=== PATIENT | female | born 1985 | race Caucasian/White ===

== ENCOUNTER 2019-05-23 06:24 | Emergency (ER) | payer MEDICAID, OTHER ==
[~2019-05-23] VITALS: Ht 157.4 cm; Wt 95.5 kg
[2019-05-23] MEDS ORDERED: LACTATED RINGERS 1,000 ML IV ONE (07:33)
--- NOTE | 2019-05-23 07:36 | ED Abdominal Pain ---
General Chief Complaint: Abdominal/GI Problems Stated Complaint: ABD PAIN Source of Information: Patient History of Present Illness Date Seen by Provider: May 23, 2019 Time Seen by Provider: 07:25 Initial Comments PT ARRIVES VIA POV FROM HOME C/O RUQ PAIN RADIATING TO RIGHT FLANK PAIN BEGAN SOMETIME THIS MORNING--PT UNABLE TO STATE WHAT TIME/HOW LONG IT HAS BEEN GOING ON NOTHING WORSENS OR IMPROVES PAIN C/O NAUSEA, NO VOMITING HAD NORMAL BM YESTERDAY NO URINARY SYMPTOMS NO FEVER, BUT STATES SHE HAS "HOT FLASHES" SOMETIMES HAS HAD THIS SAME PAIN SEVERAL TIMES BEFORE, BUT HAS NEVER SOUGHT CARE THIS IS NO DIFFERENT THAN PREVIOUS EPISODES HAS NOT TAKEN ANYTHING FOR PAIN LMP--28 DAYS AGO. NORMAL. NO CONTROL PT DRINKS HEAVILY EVERY DAY--AT LEAST 2 PINTS OF HARD LIQUOR EVERY DAY PT IS IV METH USER PT SMOKES OVER 1 PPD SINCE AGE 15 PCP: NONE--STATES SHE "DOESN'T GO TO DOCTORS" Allergies and Home Medications Allergies Coded Allergies: No Known Drug Allergies (Unverified , 05/23/19) Home Medications Ondansetron 4 Mg Tab.rapdis, 4 MG PO Q4H Prescribed by: NIDIA ROSS on 05/23/19931 Tramadol HCl 50 Mg Tablet, 50 MG PO Q4H PRN for PAIN-MODERATE Prescribed by: NIDIA ROSS on 05/23/19 0932 Patient Home Medication List Home Medication List Reviewed: Yes Review of Systems Review of Systems Constitutional: see HPI Respiratory: No Symptoms Reported Cardiovascular: No Symptoms Reported Gastrointestinal: See HPI, Abdominal Pain; Denies Diarrhea; Nausea; Denies Vomiting Genitourinary: No Symptoms Reported Musculoskeletal: see HPI, back pain Skin: no symptoms reported Psychiatric/Neurological: No Symptoms Reported Endocrine: No Symptoms Reported Hematologic/Lymphatic: No Symptoms Reported Past Fqnjyvn-[id number]-Wjuphh Hx Past Med/Social Hx: Reviewed and Corrections made Patient Social History Alcohol Use: Regular Use (DRINKS "A COUPLE OF PINTS A DAY" ) Recreational Drug Use: Yes (+IV METH USE, ALSO TESTED + FOR BENZO'S) Drug of Choice: + IV METH USE, ALSO TESTED + FOR BENZO'S Smoking Status: Current Everyday Smoker (> 1 PPD SINCE AGE 15) Type Used: Cigarettes (> 1 PPD SINCE AGE 15) Recent Foreign Travel: No Contact w/Someone Who Travel: No Past Medical History Surgeries: Yes (CYST REMOVED FROM LEFT FOOT) Orthopedic Respiratory: No Cardiac: No Neurological: No : No Reproductive Disorders: No Genitourinary: No Gastrointestinal: No Musculoskeletal: Yes (CYST REMOVED FROM LEFT FOOT) Endocrine: No HEENT: Yes (POOR DENTITION) Cancer: No Psychosocial: Yes (POLYSUBSTANCE ABUSE) Integumentary: No Blood Disorders: No Physical Exam Vital Signs Vital Signs - First Documented 05/23/19 07:20 Temp 36.4 Pulse 94 Resp 20 B/P (MAP) 142/103 (116) Pulse Ox 100 O2 Delivery Room Air Capillary Refill : Height/Weight/BMI Height: '" Weight: lbs. oz. kg; BMI Method: General Appearance: no apparent distress, obese, other (SITTING -STYLE, WALKS UPRIGHT AND MOVES QUICKLY WITHOUT DIFFICULTY. DOES NOT APPEAR TO BE IN ANY DISCOMFORT WHATSOEVER. REEKS OF CIGARETTES. CONSTANT MOVEMENTS OF BODY AND MOUTH. ) HEENT: other (POOR DENTITION--NO UPPER TEETH) Neck: normal inspection Respiratory: normal breath sounds, no respiratory distress, no accessory muscle use Cardiovascular: regular rate, rhythm, no murmur Gastrointestinal: normal bowel sounds, soft, tenderness (RUQ) Extremities: normal inspection Back: CVA tenderness (R) Neurologic/Psychiatric: manager home II-XII nml as tested, no motor/sensory deficits, alert, normal mood/affect, oriented x 3 Skin: normal color, warm/dry; No rash Progress/Results/Core Measures Results/Orders Lab Results Laboratory Tests Test 05/23/19 07:20 05/23/19 07:40 Range/Units Urine Color YELLOW Urine Clarity CLEAR Urine pH 5.5 5-9 Urine Specific [place] 1.025 H 1.016-1.022 Urine Protein NEGATIVE NEGATIVE Urine Glucose (UA) NEGATIVE NEGATIVE Urine Ketones NEGATIVE NEGATIVE Urine Nitrite NEGATIVE NEGATIVE Urine Bilirubin NEGATIVE NEGATIVE Urine Urobilinogen 0.2 < = 1.0 MG/DL Urine Leukocyte Esterase NEGATIVE NEGATIVE Urine RBC (Auto) NEGATIVE NEGATIVE Urine RBC NONE /HPF Urine WBC NONE /HPF Urine Squamous Epithelial Cells RARE /HPF Urine Crystals NONE /LPF Urine Bacteria NEGATIVE /HPF Urine Casts NONE /LPF Urine Mucus NEGATIVE /LPF Urine Culture Indicated NO Urine Opiates Screen NEGATIVE NEGATIVE Urine Oxycodone Screen NEGATIVE NEGATIVE Urine Methadone Screen NEGATIVE NEGATIVE Urine Propoxyphene Screen NEGATIVE NEGATIVE Urine Barbiturates Screen NEGATIVE NEGATIVE Ur Tricyclic Antidepressants Screen NEGATIVE NEGATIVE Urine Phencyclidine Screen NEGATIVE NEGATIVE Urine Amphetamines Screen POSITIVE H NEGATIVE Urine Methamphetamines Screen NEGATIVE NEGATIVE Urine Benzodiazepines Screen POSITIVE H NEGATIVE Urine Cocaine Screen NEGATIVE NEGATIVE Urine Cannabinoids Screen NEGATIVE NEGATIVE White Blood Count 12.4 H 4.3-11.0 10^3/uL Red Blood Count 5.46 4.35-5.85 10^6/uL Hemoglobin 15.5 11.5-16.0 G/DL Hematocrit 47 35-52 % Mean Corpuscular Volume 85 80-99 FL Mean Corpuscular Hemoglobin 28 25-34 PG Mean Corpuscular Hemoglobin Concent 33 32-36 G/DL Red Cell Distribution Width 13.3 10.0-14.5 % Platelet Count 307 130-400 10^3/uL Mean Platelet Volume 11.3 H 7.4-10.4 FL Neutrophils (%) (Auto) 69 42-75 % Lymphocytes (%) (Auto) 23 12-44 % Monocytes (%) (Auto) 4 0-12 % Eosinophils (%) (Auto) 3 0-10 % Basophils (%) (Auto) 0 0-10 % Neutrophils # (Auto) 8.5 H 1.8-7.8 X 10^3 Lymphocytes # (Auto) 2.9 1.0-4.0 X 10^3 Monocytes # (Auto) 0.5 0.0-1.0 X 10^3 Eosinophils # (Auto) 0.4 H 0.0-0.3 10^3/uL Basophils # (Auto) 0.0 0.0-0.1 10^3/uL Sodium Level 136 135-145 MMOL/L Potassium Level 3.9 3.6-5.0 MMOL/L Chloride Level 103 98-107 MMOL/L Carbon Dioxide Level 22 21-32 MMOL/L Anion Gap 11 5-14 MMOL/L Blood Urea Nitrogen 11 7-18 MG/DL Creatinine 0.78 0.60-1.30 MG/DL Estimat Glomerular Filtration Rate > 60 BUN/Creatinine Ratio 14 Glucose Level 105 70-105 MG/DL Calcium Level 10.0 8.5-10.1 MG/DL Corrected Calcium 8.5-10.1 MG/DL Total Bilirubin 0.2 0.1-1.0 MG/DL Aspartate Amino Transf (AST/SGOT) 26 5-34 U/L Alanine Aminotransferase (ALT/SGPT) 53 0-55 U/L Alkaline Phosphatase 74 40-136 U/L Total Protein 7.7 6.4-8.2 GM/DL Albumin 4.6 H 3.2-4.5 GM/DL Amylase Level 26 25-125 U/L Lipase 15 8-78 U/L Serum Alcohol < 10 <10 MG/DL My Orders Orders - NIDIA ROSS DO Ed Iv/Invasive Line Start (05/23/19 07:33) Urine Bedside (05/23/19 07:33) Alcohol (05/23/19 07:33) Amylase (05/23/19 07:33) Cbc With Automated Diff (05/23/19 07:33) Comprehensive Metabolic Panel (05/23/19 07:33) Drug Screen Stat (Urine) (05/23/19 07:33) Lipase (05/23/19 07:33) Ua Culture If Indicated (05/23/19 07:33) Ed Iv/Invasive Line Start (05/23/19 07:33) Ondansetron Injection (Zofran Injectio (05/23/19 07:45) Ed Iv/Invasive Line Start (05/23/19 07:33) Lactated Ringers (Lr 1000 Ml Iv Solution (05/23/19 07:33) Ct Abdomen/Pelvis W (05/23/19 08:08) Acute Abd Series (05/23/19 08:08) Iohexol Injection (Omnipaque 350 Mg/Ml 1 (05/23/19 08:45) Received Contrast (Hold Metformin- Contr (05/23/19 08:45) Ns (Ivpb) (Sodium Chloride 0.9% Ivpb Bag (05/23/19 08:45) Medications Given in ED Current Medications Medications Dose Ordered Sig/Jayden Route Start Time Stop Time Status Last Admin Dose Admin Iohexol 100 ml ONCE ONCE IV 05/23/19 08:45 05/23/19 08:46 DC 05/23/19 08:42 100 ML Lactated Ringer's 1,000 ml @ 0 mls/hr Q0M ONCE IV 05/23/19 07:33 05/23/19 07:35 DC 05/23/19 07:44 1,000 MLS/HR Ondansetron HCl 4 mg ONCE ONCE IVP 05/23/19 07:45 05/23/19 07:46 DC 05/23/19 07:45 4 MG Sodium Chloride 100 ml ONCE ONCE IV 05/23/19 08:45 05/23/19 08:46 DC 05/23/19 08:42 80 ML Vital Signs/I&O 05/23/19 05/23/19 07:20 09:45 Temp 36.4 36.4 Pulse 94 85 Resp 20 20 B/P (MAP) 142/103 (116) 147/87 (116) Pulse Ox 100 100 O2 Delivery Room Air Room Air Progress Progress Note : Progress Note NAUSEA RESOLVED AND NO PAIN AT DISMISSAL UNEVENTFUL ER STAY PT PLEASANT AND SMILING FOR ENTIRE ER STAY Diagnostic Imaging Comments ABDOMEN XRAYS--NO ACUTE PROCESS, PER RADIOLOGIST REPORT AT 09 CT ABDOMEN/PELVIS--CHOLELITHIASIS WITH DISTENDED GALLBLADDER, BUT NO BILE DUCT DILATATION. BORDERLINE HEPATOMEGALY WITH HEPATIC STEATOSIS. SMALL PARTIALLY INVOLUTING RIGHT OVARIAN CYST. SMALL NON-SPECIFIC PULMONARY NODULES--PER RADIOLOGIST REPORT AT 09 Reviewed: Reviewed by Me Departure Impression Primary Impression: Cholelithiasis Additional Impressions: Alcoholism ILLICIT DRUG USE--METHAMPHETAMINES AND BENZODIAZEPINES Hepatic steatosis Disposition: 01 HOME, SELF-CARE Condition: Improved Departure-Patient Inst. Referrals: MAX RODRIGUEZ,LOCAL PHYSICIAN (PCP) Primary Care Physician [facility] Patient Instructions: Gallstones (DC) Add. Discharge Instructions: CLEAR LIQUIDS--WATER, BROTH, JELLO, GATORADE BRATS DIET--BANANAS, RICE, APPLESAUCE, TOAST, SALTINES. YOU MAY ALSO HAVE PLAIN BAKED CHICKEN NO SPICY, GREASY/HIGH FAT, OR ACIDIC FOODS OR DRINKS FOLLOW UP WITH DR. RODRIGUEZ, SURGEON, FOR FURTHER CARE. YOU MAY FOLLOW UP WITH [facility] TO ESTABLISH CARE THERE FOR ROUTINE MEDICAL CARE. All discharge instructions reviewed with patient and/or family. Voiced understanding. Scripts Tramadol HCl (Ultram) 50 Mg Tablet 50 MG PO Q4H PRN for PAIN-MODERATE for 3 Days, TAB Prov: NIDIA ROSS DO 05/23/19 Ondansetron (Ondansetron Odt) 4 Mg Tab.rapdis 4 MG PO Q4H for Nausea/Vomiting, #10 TAB Prov: NIDIA ROSS DO 05/23/19 NIDIA ROSS DO May 23, 2019 07:36
[2019-05-23 07:41] LABS: BILIRUBIN,URINE NEGATIVE (NEGATIVE); CLARITY,URINE CLEAR; COLOR,URINE YELLOW; GLUCOSE, URINE (UA) NEGATIVE (NEGATIVE); KETONES,URINE NEGATIVE (NEGATIVE); LEUKOCYTE ESTERASE ,URINE NEGATIVE (NEGATIVE); NITRITE,URINE NEGATIVE (NEGATIVE); PH,URINE 5.5 (5-9); PROTEIN,URINE NEGATIVE (NEGATIVE)
[2019-05-23] MEDS ORDERED: ONDANSETRON 4 MG/2 ML (SDV) Z0FRAN IVP ONE (07:45)
[2019-05-23 07:47] LABS: BASOPHILS % (AUTO) 0 % (0-10); EOSINOPHILS # (AUTO) 0.4 10^3/uL (0.0-0.3); EOSINOPHILS % (AUTO) 3 % (0-10); HEMATOCRIT 47 % (35-52); HEMOGLOBIN 15.5 G/DL (11.5-16.0); LYMPHOCYTES # (AUTO) 2.9 X 10^3 (1.0-4.0); LYMPHOCYTES % (AUTO) 23 % (12-44); MEAN CORPUSCULAR HEMOGLOBIN 28 PG (25-34); MEAN CORPUSCULAR HGB CONC 33 G/DL (32-36); MEAN CORPUSCULAR VOLUME 85 FL (80-99); MEAN PLATELET VOLUME 11.3 FL (7.4-10.4); MONOCYTES # (AUTO) 0.5 X 10^3 (0.0-1.0); MONOCYTES % (AUTO) 4 % (0-12); NEUTROPHILS # (AUTO) 8.5 X 10^3 (1.8-7.8); NEUTROPHILS % (AUTO) 69 % (42-75); PLATELET COUNT 307 10^3/uL (130-400); RED CELL DISTRIBUTION WIDTH 13.3 % (10.0-14.5); WHITE BLOOD COUNT 12.4 10^3/uL (4.3-11.0)
[2019-05-23 07:58] LABS: AMPHETAMINE SCREEN, URINE POSITIVE (NEGATIVE); BACTERIA,URINE NEGATIVE /HPF; BARBITURATE SCREEN URINE NEGATIVE (NEGATIVE); BENZODIAZEPINES SCREEN URINE POSITIVE (NEGATIVE); CANNABINOID SCREEN, URINE NEGATIVE (NEGATIVE); COCAINE SCREEN URINE NEGATIVE (NEGATIVE); METHADONE STAT NEGATIVE (NEGATIVE); METHAMPHETAMINE SCREEN URINE S NEGATIVE (NEGATIVE); OPIATE SCREEN URINE NEGATIVE (NEGATIVE); OXYCODONE STAT NEGATIVE (NEGATIVE); PROPOXYPHENE STAT NEGATIVE (NEGATIVE); SQUAMOUS EPITHELIAL CELL,UR RARE /HPF; TRICYCLIC ANTIDEPRESSANTS SCRE NEGATIVE (NEGATIVE)
[2019-05-23 08:06] LABS: ALANINE AMINOTRANSFERASE 53 U/L (0-55); ALBUMIN 4.6 GM/DL (3.2-4.5); ALKALINE PHOSPHATASE 74 U/L (40-136); AMYLASE 26 U/L (25-125); BILIRUBIN,TOTAL 0.2 MG/DL (0.1-1.0); BUN/CREATININE RATIO 14; CARBON DIOXIDE 22 MMOL/L (21-32); CHLORIDE 103 MMOL/L (98-107); CREATININE SERUM 0.78 MG/DL (0.60-1.30); GFR ESTIMATED > 60; GLUCOSE 105 MG/DL (70-105); LIPASE 15 U/L (8-78); POTASSIUM 3.9 MMOL/L (3.6-5.0); SODIUM 136 MMOL/L (135-145); TOTAL PROTEIN 7.7 GM/DL (6.4-8.2)
--- NOTE | 2019-05-23 08:41 | Diagnostic Imaging Report ---
EXAM: ACUTE ABD SERIES INDICATION: Abdominal pain. COMPARISON: None. FINDINGS: Normal heart size and central pulmonary vascularity. No focal pulmonary opacity, pleural effusion or pneumothorax. No acute osseous findings. No free intraperitoneal air. Nonspecific bowel gas pattern. Moderate amount stool in the proximal colon. IMPRESSION: 1. No acute radiographic findings in the abdomen or pelvis. 2. Moderate amount of stool in the proximal colon. Dictated by: Dictated on workstation # [id number]
[2019-05-23] MEDS ORDERED: NS 100 ML (IVPB) BAG IV ONE (08:45)
[2019-05-23] MEDS ORDERED: HOLD METFORMIN - RECEIVED CONTRAST 20 ML VIAL IV SCH (08:45)
[2019-05-23] MEDS ORDERED: IOHEXOL 350 MG/ML 100 ML (OMNIPAQUE 350) VIAL IV ONE (08:45)
--- NOTE | 2019-05-23 09:15 | Diagnostic Imaging Report ---
PROCEDURE: CT abdomen and pelvis with contrast. TECHNIQUE: Multiple contiguous axial images were obtained through the abdomen and pelvis after administration of intravenous contrast. Auto Exposure Controls were utilized during the CT exam to meet ALARA standards for radiation dose reduction. INDICATION: Right-sided abdominal pain beginning earlier in the day. Nausea. CORRELATION STUDY: None. FINDINGS: LOWER THORAX: No significant basilar infiltrate. There are several small, 3 to 4 mm in size lower lung pulmonary nodules. There is a 4.9 x 3.3 cm rounded low-density mass at the right lung base anteriorly adjacent to the heart surface, may reflect perhaps a pericardial cyst, likely of no significance. LIVER: Borderline enlarged at nearly 20 cm craniocaudal length. Mild diffuse hepatic steatosis. Slight asymmetric enhancement, likely of no significance. GALLBLADDER: Mildly distended. Several gallstones noted near the gallbladder neck. No appreciable bile duct dilatation. SPLEEN: Unremarkable. PANCREAS: Unremarkable. ADRENAL GLANDS: Unremarkable. KIDNEYS: Normal configuration. No calcification or obstruction. ABDOMINAL AORTA: Unremarkable, nonaneurysmal. A few shotty subcentimeter central retroperitoneal lymph nodes. GASTROINTESTINAL TRACT: No obstruction or inflammation. Normal appendix. URINARY BLADDER: Unremarkable. REPRODUCTIVE: Uterus appearing unremarkable. Likely small cysts of the right ovary. No significant pelvic fluid. Small fat-containing retro-umbilical hernia. OSSEOUS STRUCTURES: No acute abnormality. OTHER: None. IMPRESSION: 1. Cholelithiasis with mildly distended gallbladder. No significant bile duct dilatation. If symptoms referable to this, correlation with right upper quadrant ultrasound evaluation recommended. 2. Borderline hepatomegaly with hepatic steatosis. 3. Likely small partially involuting right ovarian cyst. 4. Nonspecific small pulmonary nodules. Correlation should be based on patient's risk stratification and Fleischner criteria. Dictated by: Dictated on workstation # [id number]
[2019-05-23] MEDS ORDERED: TRAM-42 PO (09:32)
[2019-05-23] MEDS ORDERED: ONDA4TAB11 PO (09:32)
[2019-05-23 09:45] VITALS: BP 147/87
== END 2019-05-23 09:45 | disposition home or self-care (01) ==
LOC: ER 06:27
DX: K80.20 Calculus of gallbladder without cholecystitis without obstruction (principal); F10.20 Alcohol dependence, uncomplicated; F15.90 Other stimulant use, unspecified, uncomplicated; F13.90 Sedative, hypnotic, or anxiolytic use, unspecified, uncomplicated; K76.0 Fatty (change of) liver, not elsewhere classified; F17.210 Nicotine dependence, cigarettes, uncomplicated
CPT/HCPCS: 36415; 74022; 74177; 80053; 80306; 80320; 81000; 82150; 83690; 84703; 85025